=== PATIENT | female | born 1950 | race Hispanic/Latino ===

== ENCOUNTER 2021-04-26 20:33 | Emergency (ER) | payer MEDICARE, BC ==
[~2021-04-26] VITALS: Ht 157.5 cm; Wt 68.0 kg
[2021-04-26 21:57] VITALS: BP 132/75
== END 2021-04-26 22:56 | disposition home or self-care (01) ==
LOC: ER 20:40
DX: I10 Essential (primary) hypertension (principal); E78.5 Hyperlipidemia, unspecified
CPT/HCPCS: 93005; 99282